=== PATIENT | female | born 1955 | race Caucasian/White ===

== ENCOUNTER 2021-02-02 06:54 | Day surgery (SDC) | payer MEDICARE, BC ==
[2021-02-02] MEDS ORDERED: Lactated Ringers 1,000 ML IV SCH (07:00)
[2021-02-02] MEDS ORDERED: Midazolam 1 MG/ML 2 ML SDV ONE (08:00)
[2021-02-02] MEDS ORDERED: Propofol 200 MG/20 ML SDV ONE (08:00)
[2021-02-02] MEDS ORDERED: fentaNYL 100 MCG/2 ML SDV ONE (08:00)
--- NOTE | 2021-02-02 14:53 | OR ---
PREOPERATIVE DIAGNOSIS: Screening colonoscopy. The patient does have a history of colon polyp back in 2007. Followup colonoscopies in 2009 and 2012 were both normal. There is a positive family history of polyps in both parents. POSTOPERATIVE DIAGNOSES: 1. Moderately significant diverticulosis, diffuse, but left greater than right. 2. Otherwise, normal-appearing colon and normal distal ileum. PROCEDURE: Colonoscopy. SURGEON: Joselito Yarbrough M.D. ANESTHESIA: Monitored anesthesia care. BOWEL PREP: Good. DESCRIPTION OF PROCEDURE: Codie is a 65-year-old female who was brought to the endoscopy suite after discussing risks and benefits of the procedure. Informed consent was obtained for conscious sedation and colonoscopy with or without biopsy and/or polypectomy. We also discussed possibility of missed lesions. Pre-procedure exam was unremarkable. IV, oxygen, and monitors were placed. The patient was placed in the left lateral decubitus position. Sedation was administered and a digital rectal exam was performed and unremarkable. Colonoscope was passed into the rectum and slowly advanced all the way to the cecum. Cecum was viewed and photographed. Ileocecal valve was intubated and distal ileum was normal in appearance. The colonoscope was slowly withdrawn and the mucosa closely observed in direct circumferential manner. The patient did have moderately significant diverticulosis, left greater than right. Otherwise, ascending colon unremarkable. Transverse colon unremarkable. Descending colon unremarkable. Sigmoid colon unremarkable. Retroflexion was performed. Rectal mucosa unremarkable. Scope was removed. The patient tolerated the procedure well. The patient was monitored until that baseline status. Discharge instructions were reviewed and the patient was discharged in good condition. COMPLICATIONS: None. TOTAL TIME: 16 minutes. ESTIMATED BLOOD LOSS: None. RECOMMENDATIONS/FOLLOWUP: Would recommend repeat colonoscopy in 7 to 10-year range given the positive family history of polyps in both parents and a remote personal history of colon polyp. The patient can resume aspirin tomorrow. I would like to kindly thank Maria Teresa Watson for this referral. DMB: 02/02/2021 10:40:27 MODL: 02/02/2021 14:44:06 /[id number]
== END 2021-02-02 13:24 | disposition home or self-care (01) ==
LOC: VM.SDS 06:54
PROVIDERS: ATTEND Family Medicine
DX: Z12.11 Encounter for screening for malignant neoplasm of colon (principal); K57.30 Diverticulosis of large intestine without perforation or abscess without bleeding; E78.00 Pure hypercholesterolemia, unspecified; J45.909 Unspecified asthma, uncomplicated; I50.9 Heart failure, unspecified; Z83.71 Family history of colonic polyps; Z86.010 Personal history of colon polyps; Z79.899 Other long term (current) drug therapy; Z88.0 Allergy status to penicillin; Z88.8 Allergy status to other drugs, medicaments and biological substances; Z91.030 Bee allergy status
CPT/HCPCS: 00812; J2250; J2704; J3010; J7120